=== PATIENT | female | born 1980 | race Asian ===

== ENCOUNTER 2020-01-18 09:24 | Inpatient (IN) | payer OTHER ==
[2020-01-18] MEDS ORDERED: Ondansetron PF 4 MG/2 ML Vial IVP PRN (13:39)
[2020-01-18] MEDS ORDERED: Acetaminophen 325 MG TAB PO PRN (13:39)
[2020-01-18] MEDS ORDERED: Zolpidem Tartrate 5 MG TAB PO PRN (13:40)
[2020-01-18 14:18] VITALS: BMI 31.7
[2020-01-18] MEDS: Sodium Chloride 0.9% 1,000 ML IV SCH (14:45)
[2020-01-18] MEDS: MEROPENEM 1 GM/50 ML 1 GM in Premix Bag 1 BAG IVPB SCH ×2 (14:45→21:23)
--- NOTE | 2020-01-18 17:31 | PDOC.LDHP ---
Labor and Delivery H&P Chief complaint: other (persistent pseudomonas UTI) HPI: 39yo at 31w6d by LMP directly admitted due to persistent UTI unimproved with multiple outpatient antibiotic therapies. No symptoms, no flank pain or fever. Good FM. No PTL sx. No PIH sx. Current gestational age (weeks): 31 Due date: 03/15/20 Dating criteria: last menstrual period Grav: 2 Para: 0 OB History Details: hx of second trimester demise Current complications: none Abnormal US findings: No Past Medical History: denies Current medications: pre- vitamins, iron Previous surgical history: none Allergies/Adverse Reactions: Allergies Allergy/AdvReac Type Severity Reaction Status Date / Time No Known Allergies Allergy Verified 01/18/20 14:20 Social history: none - Physical Exam Vital signs reviewed and normal: yes General: NAD Heart: RRR Lungs: CTAB Abdomen: gravid Extremeties: no edema - Assessment Complicated UTI at 31w6d - Plan -: For inpatient antibiotic therapy to ensure adequate treatment of pseudomonas UTI. NST q shift. Reg diet, up ad mera.
[2020-01-19] MEDS: MEROPENEM 1 GM/50 ML 1 GM in Premix Bag 1 BAG IVPB SCH ×3 (05:20→21:25)
[2020-01-19] MEDS ORDERED: Prenatal Vitamin 1 TAB PO SCH (09:00)
[2020-01-19 12:25] LABS: SARS-CoV-2 MS2 Positive; SARS-CoV-2 N Gene Negative; SARS-CoV-2 S Gene Negative; SARS-CoV-2 by NAA Not Detected (NotDetected); SARS-CoV-2 orf1ab Negative
--- NOTE | 2020-01-19 12:36 | PDOC.LDPN ---
Labor & Delivery Progress Note - Subjective Subjective: comfortable (IV is bothering her) - Objective Vital signs reviewed and normal: yes General: NAD Uterine fundus: non tender FHT: category 1 -: Cont IV abx x 48hr Ok to HLIV in between abx doses Plan DC home tomorrow NST q shift.
[2020-01-19] MEDS: Sodium Chloride 0.9% 1,000 ML IV SCH (14:53)
[2020-01-20] MEDS: MEROPENEM 1 GM/50 ML 1 GM in Premix Bag 1 BAG IVPB SCH (05:57)
[2020-01-20 08:06] VITALS: BP 119/55; TEMP 97.7
--- NOTE | 2020-01-20 09:58 | PDOC.EVN ---
Event Note - Event Note Event Note: Reports active fetus. No concerns. Vital signs are stable Has completed 48 hours of IV MERREN. Discussed with Dr Beavers...Will send rx for supreesion with keflex. Keep f/u one week with Dr Beavers. 31 week OB with pseudomonas multi drug resistant asb...
== END 2020-01-20 08:45 | disposition home or self-care (01) | DRG 832 ==
LOC: 3SE 12:51
PROVIDERS: ADMIT Student in an Organized Health Care Education/Training Program; ATTEND Student in an Organized Health Care Education/Training Program
DX: O23.43 Unspecified infection of urinary tract in pregnancy, third trimester (principal); Z16.24 Resistance to multiple antibiotics; B96.5 Pseudomonas (aeruginosa) (mallei) (pseudomallei) as the cause of diseases classified elsewhere; Z3A.31 31 weeks gestation of pregnancy; Z20.828 Contact with and (suspected) exposure to other viral communicable diseases
CPT/HCPCS: 59025; 87635; J2185; U0003

== ENCOUNTER 2020-02-09 15:10 | Outpatient (CLI) | payer OTHER ==
--- NOTE | 2020-02-09 15:53 | ULT ---
Exam: Bilateral renal ultrasound HISTORY: 2 months of urinary tract infection. COMPARISON: None FINDINGS: Right kidney: Normal cortical echotexture. No hydronephrosis. Right kidney measurements: 6.0 x 11.5 x 6.7 cm. Left kidney: Normal cortical echotexture. No hydronephrosis Left kidney measurements 6.7 x 11.2 x 4.3 cm. Urinary bladder: Normal mucosa. Prevoid volume is 138 mL. Post void volume is less than a millimeter. Bilateral ureteral jets are identified. IMPRESSION: 1. No hydronephrosis 2. No significant post void residual 3. Bilateral ureteral jets are identified.
== END 2020-02-09 15:11 | disposition home or self-care (01) ==
LOC: SCSULT 15:10
PROVIDERS: ATTEND Student in an Organized Health Care Education/Training Program
DX: N39.0 Urinary tract infection, site not specified (principal); Z96.0 Presence of urogenital implants
CPT/HCPCS: 76770

== ENCOUNTER 2020-03-09 07:48 | Outpatient (CLI) | payer OTHER ==
[2020-03-09 17:49] LABS: SARS-CoV-2 MS2 Positive; SARS-CoV-2 N Gene Negative; SARS-CoV-2 S Gene Negative; SARS-CoV-2 by NAA Not Detected (NotDetected); SARS-CoV-2 orf1ab Negative
== END 2020-03-09 07:49 | disposition home or self-care (01) ==
LOC: LABBT 07:48
PROVIDERS: ATTEND Student in an Organized Health Care Education/Training Program
DX: Z20.828 Contact with and (suspected) exposure to other viral communicable diseases (principal)
CPT/HCPCS: 87635; U0003

== ENCOUNTER 2020-03-13 19:15 | Inpatient (IN) | payer OTHER ==
[~2020-03-13 19:15] MED LIST: Bupivacaine 0.25% HCL 30 ML VIAL ONE
[2020-03-13 20:33] VITALS: BMI 33.5
[2020-03-13] MEDS: Lactated Ringer's 1,000 ML IV SCH (21:00)
[2020-03-13] MEDS ORDERED: Methylergonovine 0.2 MG/ML VIAL IM PRN (21:01)
[2020-03-13] MEDS ORDERED: Acetaminophen 500 MG TAB PO PRN (21:01)
[2020-03-13] MEDS ORDERED: Promethazine HCl 25 MG/ML VIAL IM PRN (21:01)
[2020-03-13] MEDS ORDERED: Butorphanol Tartrate 1 MG/ML VIAL SLOW IVP PRN (21:01)
[2020-03-13] MEDS ORDERED: Ibuprofen 800 MG TAB PO PRN (21:01)
[2020-03-13] MEDS ORDERED: Carboprost 250 MCG/ML AMP IM PRN (21:01)
[2020-03-13] MEDS ORDERED: Diphenoxylate HCl/Atropine Tablet PO PRN (21:01)
[2020-03-13] MEDS ORDERED: Misoprostol 200 MCG TAB PR PRN (21:01)
[2020-03-13] MEDS ORDERED: hydrALAZINE 20 MG/ML VIAL SLOW IVP PRN (21:01)
[2020-03-13] MEDS ORDERED: Acetaminophen/Codeine 30-300mg Tablet PO PRN (21:01)
[2020-03-13] MEDS ORDERED: Ondansetron PF 4 MG/2 ML Vial IVP PRN (21:01)
[2020-03-13] MEDS ORDERED: Lidocaine 1% (PF) 30 ML VIAL SC PRN (21:01)
[2020-03-13] MEDS ORDERED: NS / Oxytocin 40 units/1000ml 1,000 ML IV PRN (21:01)
[2020-03-13 21:31] LABS: Hemoglobin 10.4 g/dL (12.0-16.0); Mean Corpuscular HGB CONC 33.9 g/dL (32.0-36.0); Mean Corpuscular Hemoglobin 27.9 pg (27.0-31.0); Mean Corpuscular Volume 82.3 fL (78.0-98.0); Mean Platelet Volume 10.2 fL (7.4-10.4); Platelet Count 232 thou/uL (130-400); RBC Distribution Width 12.5 % (11.5-14.5); Red Blood Cell (RBC) Count 3.74 mill/uL (4.20-5.40); White Blood Cell (WBC) Count 9.4 thou/uL (4.8-10.8)
[2020-03-13] MEDS: Misoprostol 100 MCG TAB VAG SCH (21:31)
[2020-03-13 22:09] LABS: Syphilis Antibody Nonreactive (Nonreactive); Syphilis Antibody Index 0.07 S/CO (<1.00 Non-Reactive)
[2020-03-13 22:55] LABS: HBSAg Index 0.16 S/CO (0-0.99); Hep B Surf Ag Non-Reactive S/CO (NonReactive)
[2020-03-14] MEDS: Misoprostol 100 MCG TAB VAG SCH ×2 (00:35→10:17)
[2020-03-14] MEDS: Lactated Ringer's 1,000 ML IV SCH ×2 (02:39→05:36)
[2020-03-14] MEDS ORDERED: Fentanyl 4 mcg/Bup 0.1% Cadd 100 ML ONE (04:32)
[2020-03-14] MEDS ORDERED: Terbutaline Sulfate 1 MG/ML VIAL SC SCH (06:00)
[2020-03-14] MEDS ORDERED: Terbutaline Sulfate 1 MG/ML VIAL ONE (06:12)
[2020-03-14 08:31] LABS: Actual Bicarbonate (HCO3v) 21 mEq/L (22-28); Base Excess -5.5 mEq/L (-2.0 to +3.0); pH (Cord, venous) 7.29 (7.32-7.43)
[2020-03-14 08:33] LABS: Actual Bicarbonate (HCO3a) 21.8 mEq/L (22-28); Base Excess (BEa) -6.4 mEq/L (-2.0 to +3.0)
--- NOTE | 2020-03-14 09:58 | PDOC.LDHP ---
Labor and Delivery H&P Chief complaint: scheduled induction Current medications: pre- vitamins Allergies/Adverse Reactions: Allergies Allergy/AdvReac Type Severity Reaction Status Date / Time No Known Allergies Allergy Verified 01/18/20 14:20
--- NOTE | 2020-03-14 09:58 | PDOC.OPDEL ---
OB Operative/Delivery Note Delivery Dr/Surgeon: Ruthann Assist: n/a Pre-Delivery Diagnosis: elective induction, non-reassuring tracing Procedure/Post Delivery Dx: operative vaginal delivery (VE) Weeks gestation: 39 Anesthesia: epidural - Findings A Sex: male - 1 min: 8 - 5 min: 9 - Additional Findings/Plan Placenta delivered: spontaneous Repaired Obstetrical Laceration: 2nd degree Estimated blood loss: 600cc Post delivery plan: routine recovery
[2020-03-14] MEDS ORDERED: hydrALAZINE 20 MG/ML VIAL SLOW IVP PRN (10:10)
[2020-03-14] MEDS ORDERED: Milk Of Magnesia 30 ML UDCUP PO PRN (10:10)
[2020-03-14] MEDS ORDERED: Ondansetron PF 4 MG/2 ML Vial IVP PRN (10:10)
[2020-03-14] MEDS ORDERED: HYDROcodone/Acetaminophen 5/325 mg Tablet PO PRN (10:10)
[2020-03-14] MEDS ORDERED: Lanolin Ointment 7 GM TUBE TOP PRN (10:10)
[2020-03-14] MEDS ORDERED: Benzocaine-Menthol 82.5 ML CAN TOP PRN (10:10)
[2020-03-14] MEDS ORDERED: Preparation H Ointment 28 GM TUBE PR PRN (10:10)
[2020-03-14] MEDS ORDERED: NS / Oxytocin 40 units/1000ml 1,000 ML IV SCH (10:10)
[2020-03-14] MEDS ORDERED: diphenhydrAMINE 25 MG CAP PO PRN (10:10)
[2020-03-14] MEDS ORDERED: Bisacodyl 10 MG SUPP PR PRN (10:10)
[2020-03-14] MEDS: HYDROcodone/Acetaminophen 5/325 mg Tablet PO PRN ×2 (10:46→19:10)
[2020-03-14] MEDS: Ferrous Sulfate 325 MG TAB PO SCH (11:28)
[2020-03-14] MEDS: Ibuprofen 800 MG TAB PO SCH ×2 (13:53→20:31)
[2020-03-14] MEDS: Docusate Calcium (SURFAK) 240 MG CAP PO SCH (20:32)
[2020-03-14] MEDS ORDERED: FLU VACC QS2020-21(6MOS UP)/PF 60 MCG/0.5 ML SYRINGE IM ONE (21:00)
[2020-03-15] MEDS: Ibuprofen 800 MG TAB PO SCH ×3 (04:25→20:41)
[2020-03-15] MEDS: HYDROcodone/Acetaminophen 5/325 mg Tablet PO PRN ×2 (04:25→18:24)
[2020-03-15 06:05] LABS: Hemoglobin 7.5 g/dL (12.0-16.0); Mean Corpuscular HGB CONC 32.4 g/dL (32.0-36.0); Mean Corpuscular Hemoglobin 27.3 pg (27.0-31.0); Mean Corpuscular Volume 84.5 fL (78.0-98.0); Mean Platelet Volume 9.6 fL (7.4-10.4); Platelet Count 152 thou/uL (130-400); RBC Distribution Width 12.9 % (11.5-14.5); Red Blood Cell (RBC) Count 2.76 mill/uL (4.20-5.40); White Blood Cell (WBC) Count 12.4 thou/uL (4.8-10.8)
[2020-03-15] MEDS ORDERED: Adacel (T-DAP) 0.5 ML SYRINGE IM ONE (09:00)
[2020-03-15] MEDS: Ferrous Sulfate 325 MG TAB PO SCH ×2 (09:07→18:25)
[2020-03-15] MEDS: Docusate Calcium (SURFAK) 240 MG CAP PO SCH ×2 (09:07→20:41)
[2020-03-15] MEDS: Prenatal Vitamin 1 TAB PO SCH (09:07)
--- NOTE | 2020-03-15 13:28 | PDOC.PP ---
Post Progress Note Post Day #: 1 PO intake tolerated: yes Flatus: yes Ambulation: yes Vital Signs (12 hours) Temp Pulse Resp BP Pulse Ox 03/15/20 11:24 97.7 F 87 20 106/57 L 98 03/15/20 07:41 98.2 F 79 20 101/56 L 99 03/15/20 04:00 98.1 F 91 18 125/70 Weight Weight 195 lb - Physical Examination General: NAD Respiratory: non-labored breathing Abdominal: no distention, appropriately TTP Extremities: negative homans (B) Skin: no rash Neurological: no gross focal deficits Psychiatric: normal affect Result Diagrams: 03/15/20 05:49 Additional Labs: Post Labs Hep Bs Antigen Non-Reactive S/CO (NonReactive) 03/13/20 21:15 Blood Type A POSITIVE 03/13/20 23:17 - Assessment/Plan PPD1 s/p VAVD VSSAF Doing well, bleeding has slowed down. Acute blood loss on chronic iron def anemia, asx, will cont iron and pnv on DC . Rh pos RImm Cont PP care, home tomorrow
[2020-03-16] MEDS: Ibuprofen 800 MG TAB PO SCH ×2 (04:47→13:09)
[2020-03-16 08:10] VITALS: BP 120/62; TEMP 98.2
--- NOTE | 2020-03-16 08:53 | PDOC.PP ---
Post Progress Note Post Day #: 2 Subjective: doing well, lochia WNL< formula feeding PO intake tolerated: yes Flatus: yes Ambulation: yes Vital Signs (12 hours) Temp Pulse Resp BP Pulse Ox 03/16/20 08:09 98.2 F 81 20 120/62 98 03/16/20 04:00 97.9 F 78 16 114/63 Weight Weight 195 lb - Physical Examination General: NAD Respiratory: non-labored breathing Abdominal: no distention Psychiatric: A&Ox3, normal affect Result Diagrams: 03/15/20 05:49 Additional Labs: Post Labs Hep Bs Antigen Non-Reactive S/CO (NonReactive) 03/13/20 21:15 Blood Type A POSITIVE 03/13/20 23:17 - Assessment/Plan PPD2 doing well after VAVD. Discussed breast feeding benefits and offering breast to baby to stimulate milk production. Plan for DC later today.
[2020-03-16] MEDS: Docusate Calcium (SURFAK) 240 MG CAP PO SCH (09:23)
[2020-03-16] MEDS: Ferrous Sulfate 325 MG TAB PO SCH (09:23)
[2020-03-16] MEDS: Prenatal Vitamin 1 TAB PO SCH (09:23)
== END 2020-03-16 14:15 | disposition home or self-care (01) | DRG 806 ==
LOC: L&D 19:47 → 3SE 03-14 12:19
PROVIDERS: ADMIT Student in an Organized Health Care Education/Training Program; ATTEND Student in an Organized Health Care Education/Training Program
PROC: 10E0XZZ Delivery of Products of Conception, External Approach (ICD-10-PCS; principal; 2020-03-14)
PROC: 0KQM0ZZ Repair Perineum Muscle, Open Approach (ICD-10-PCS; 2020-03-14)
PROC: 3E033VJ Introduction of Other Hormone into Peripheral Vein, Percutaneous Approach (ICD-10-PCS; 2020-03-14)
DX: O76 Abnormality in fetal heart rate and rhythm complicating labor and delivery (principal); D62 Acute posthemorrhagic anemia; O70.1 Second degree perineal laceration during delivery; O90.81 Anemia of the puerperium; Z37.0 Single live birth; Z3A.39 39 weeks gestation of pregnancy
CPT/HCPCS: 36415; 51702; 82805; 85027; 86780; 86850; 86900; 86901; 87340; J2405; J3105; S0020